=== PATIENT | female | born 1980 | race Caucasian/White ===

== ENCOUNTER 2019-03-19 19:44 | Emergency (ER) | payer OTHER ==
[~2019-03-19] VITALS: Ht 160 cm; Wt 68.5 kg
[2019-03-19 19:46] VITALS: Ht 160 cm; Wt 68.5 kg
[2019-03-19 20:37] LABS: BASOPHIL % 0.3 % (0-2); PLATELET COUNT 227 x10^3mcL (130-400)
[2019-03-19 20:44] LABS: CALCIUM 8.5 mg/dL (8.5-10.1); CARBON DIOXIDE 28.1 mmol/L (21-32); CHLORIDE SERUM 106 mmol/L (98-107); CREATININE SERUM 0.8 mg/dL (0.6-1.0); GFR1 > 60 mL/min; GLUCOSE SERUM 83 mg/dL (74-106); POTASSIUM SERUM 4.1 mmol/L (3.5-5.1); SODIUM SERUM 140 mmol/L (136-145)
[2019-03-19 21:27] VITALS: BP 108/70
== END 2019-03-19 21:27 | disposition home or self-care (01) ==
LOC: ED 19:44
PROVIDERS: Emergency Medicine
DX: J40 Bronchitis, not specified as acute or chronic (principal); Z98.51 Tubal ligation status
CPT/HCPCS: 36415; J1885; J7512; J7620; Q0092

== ENCOUNTER 2019-11-25 08:18 | Emergency (ER) | payer SELFPAY ==
[~2019-11-25] VITALS: Ht 160 cm; Wt 68.0 kg
[2019-11-25 08:20] VITALS: BP 126/78; Ht 160 cm; Wt 68.0 kg
== END 2019-11-25 09:00 | disposition home or self-care (01) ==
LOC: ED 08:18
DX: M25.462 Effusion, left knee (principal); Z90.49 Acquired absence of other specified parts of digestive tract